=== PATIENT | male | born 1990 | race Caucasian/White ===

== ENCOUNTER 2024-03-29 18:03 | Emergency (ER) | payer BC ==
[2024-03-29] MEDS ORDERED: METHYLPREDNISOLONE 125 MG INJ ONE (18:36)
[2024-03-29] MEDS ORDERED: DIPHENHYDRAMINE 50 MG/ML VIAL ONE (18:36)
[2024-03-29] MEDS ORDERED: FAMOTIDINE 20 MG/2 ML VIAL IV ONE (18:36)
[2024-03-29] MEDS ORDERED: EPINEPHrine 1 MG/10 ML SYR ONE (18:37)
[2024-03-29] MEDS ORDERED: NA CHLORIDE 0.9% 1,000 ML ONE (18:37)
[2024-03-29] MEDS ORDERED: EPINEPHRINE 1 MG/ML VIAL ONE (18:41)
[2024-03-29 19:05] LABS: Absolute Lymphocytes (CBC) 0.7 K/uL (0.7-4.9); Absolute Monocytes 0.2 K/uL (0.1-1.3); Absolute Neutrophil 5.8 K/uL (1.8-8.0); Basophils % 0.1 % (0-1.3); Hematocrit 44.8 % (39.6-49.0); Hemoglobin 15.6 g/dL (13.6-17.9); MCH 28.3 pg (27.0-35.0); MCHC 34.8 g/dL (32.0-36.0); MCV 81.3 fL (80-100); MPV 7.1 fL (7.6-11.3); Monocytes % 3.3 % (3.3-12.3); Neutrophils % 85.6 % (41.7-73.7); Platelets 312 thou/uL (152-406); RBC Red Blood Cell Count 5.51 M/uL (4.33-5.43); Red Cell Distribution Width 13.2 % (12.1-15.2)
[2024-03-29 19:14] LABS: PTT, Activated Partial Thromb 28.7 SECONDS (24.3-36.9); Protime INR 1.14
--- NOTE | 2024-03-29 19:16 | RAD REPORT ---
Procedure: Chest Single View HISTORY: Shortness of breath COMPARISON: none FINDINGS: The lungs appear clear of acute infiltrate. No significant pleural effusion noted. The heart is normal size. IMPRESSION: No acute abnormality is displayed.
[2024-03-29 19:21] LABS: Albumin 3.5 g/dL (3.4-5.0); Albumin/Globulin Ratio 1.1 (1.1-1.8); Anion Gap 10.2 mEq/L (5.0-15.0); Bilirubin Total 0.4 mg/dL (0.2-1.0); Globulin 3.1 g/dL (2.3-3.5); Potassium 3.2 mEq/L (3.5-5.1); Protein, Total 6.6 g/dL (6.4-8.2)
--- NOTE | 2024-03-29 20:05 | ER ---
Nurse's Notes [facility] Name: Satish Murdock Age: 33 yrs Sex: Male : 1990 Arrival Date: 03/29/2024 Time: 18:03 Bed 17 Private MD: Diagnosis: Urticaria, unspecified;Idiopathic urticaria;Hypokalemia Presentation: 03/29 18:06 Chief complaint: Patient states: has had stomach pain for a few weeks, today started ko1 breaking out in rash, has had hives for years but this is different and worse. Coronavirus screen: At this time, the client does not indicate any symptoms associated with coronavirus-19. Ebola Screen: No symptoms or risks identified at this time. Onset: The symptoms/episode began/occurred gradually. Anaphylaxis evaluation, the patient reports or I have noted the following symptoms which indicate a significant risk of anaphylaxis:. Initial Sepsis Screen: Does the patient meet any 2 criteria? No. Patient's initial sepsis screen is negative. Does the patient have a suspected source of infection? No. Patient's initial sepsis screen is negative. Risk Assessment: Do you want to hurt yourself or someone else? Patient reports no desire to harm self or others. Onset of symptoms was March 29, 2024. 18:06 Method Of Arrival: Ambulatory ko1 18:06 Acuity: ROSIE 2 ko1 Triage Assessment: 18:11 General: Appears distressed, uncomfortable, Behavior is calm, cooperative, appropriate ko1 for age. Pain: Denies pain. Historical: - Allergies: 18:11 No Known Allergies; ko1 - PMHx: 18:11 hives; ko1 - Immunization history:: Adult Immunizations unknown. - Infectious Disease History:: Denies. - Social history:: Smoking status: Patient denies any tobacco usage or history of. - Family history:: not pertinent. Screenin:20 [facility] ED Fall Risk Assessment (Adult) History of falling in the last 3 months, kj2 including since admission No falls in past 3 months (0 pts) Confusion or Disorientation No (0 pts) Intoxicated or Sedated No (0 pts) Impaired Gait No (0 pts) Mobility Assist Device Used No (0 pt) Altered Elimination No (0 pt) Score/Fall Risk Level 0 - 2 = Low Risk Maintained a safe environment, Hourly rounding (assess needs \T\ fall precautionary measures) done. Abuse screen: Denies threats or abuse. Denies injuries from another. Nutritional screening: No deficits noted. Tuberculosis screening: No symptoms or risk factors identified. Assessment: 18:20 General: Appears in no apparent distress. Behavior is calm, cooperative. Pain: kj2 Complains of pain in abdomen Pain currently is 6 out of 10 on a pain scale. Neuro: Level of Consciousness is awake, alert, obeys commands. Cardiovascular: Patient's skin is warm and dry. Respiratory: Airway is patent Respiratory effort is even, unlabored. GI: No signs and/or symptoms were reported involving the gastrointestinal system. : No signs and/or symptoms were reported regarding the genitourinary system. 20:21 Reassessment: Patient appears in no apparent distress at this time. Patient and/or kj2 family updated on plan of care and expected duration. Pain level reassessed. Patient is alert, oriented x 3, equal unlabored respirations, skin warm/dry/pink. Respiratory: Breath sounds are clear bilaterally. 20:44 Reassessment: discharge on hold pending CT. kj2 22:18 Reassessment: Patient appears in no apparent distress at this time. Patient and/or kj2 family updated on plan of care and expected duration. Pain level reassessed. Patient is alert, oriented x 3, equal unlabored respirations, skin warm/dry/pink. Vital Signs: 18:06 BP 114 / 83; Pulse 125; Resp 18; Temp 99.1; Pulse Ox 99% ; ko1 18:20 BP 135 / 90; Pulse 95; Resp 20; Pulse Ox 100% on R/A; kj2 19:12 BP 131 / 74; Pulse 89; Resp 20; kj2 20:21 BP 127 / 66; Pulse 93; Resp 20; Temp 98.2; Pulse Ox 100% ; kj2 22:17 BP 126 / 66; Pulse 91; Resp 18; Temp 98.2; Pulse Ox 100% on R/A; kj2 ED Course: 18:04 Patient arrived in ED. im 18:07 Justice Barnes MD is Attending Physician. rt 18:11 Triage completed. ko1 18:11 Arm band placed on right wrist. ko1 18:18 Betty Lambert RN is Primary Nurse. kj2 18:20 Patient has correct armband on for positive identification. Bed in low position. Call kj2 light in reach. Provided Education on: call light. 18:25 Inserted saline lock: 20 gauge in right forearm, using aseptic technique. Blood ty collected. Flushed with 10 mL NS. 18:25 First set of blood cultures drawn by me. ty 18:45 Initial lab(s) drawn, by me, Second set of blood cultures drawn by me. Inserted saline ty lock: 20 gauge in left forearm, using aseptic technique. Blood collected. Flushed with 10 mL NS. 18:58 Blood Culture Adult (2) Sent. ty 18:58 CBC with Diff Sent. ty 18:58 CMP Sent. ty 18:58 Lactate w/ 2H reflex if indic. Sent. ty 18:58 Protime (+inr) Sent. ty 18:58 Ptt, Activated Sent. ty 19:03 Chest Single View XRAY In Process Unspecified. EDMS 19:20 Attending Physician role handed off by Justice Barnes MD lizzie 19:20 Spencer Mark MD is Attending Physician. lizzie 20:04 Toan Brady MD is Referral Physician. lizzie 20:22 No provider procedures requiring assistance completed. kj2 21:14 CT Abd/Pelvis - IV Contrast Only In Process Unspecified. EDMS 22:18 IV discontinued, intact, bleeding controlled, No redness/swelling at site. Pressure kj2 dressing applied. Administered Medications: 18:49 Drug: MethylPrednisoLONE IVP 125 mg IVP once Route: IVP; Site: right forearm; kj2 20:20 Follow up: Response: No adverse reaction kj2 18:50 Drug: NS 0.9% IV 1000 ml IV at 1 bolus Per protocol; to be given as a bolus over 60 kj2 minutes Route: IV; Rate: 1 bolus; Site: right forearm; 20:21 Follow up: IV Status: Completed infusion; IV Intake: 1000ml kj2 18:50 Drug: EPINEPHrine 1:1000 Sub-Q 1:1,000 0.3 ml Sub-Q once Route: Sub-Q; Site: right kj2 upper arm; 20:20 Follow up: Response: No adverse reaction kj2 18:50 Drug: diphenhydrAMINE IVP 50 mg IVP once Route: IVP; Site: left forearm; kj2 20:20 Follow up: Response: No adverse reaction kj2 18:50 Drug: Famotidine IVP 20 mg IVP once; dilute with 10 mL 0.9% NaCl; give over 2 minutes kj2 Route: IVP; Site: right forearm; 20:20 Follow up: Response: No adverse reaction kj2 20:19 Drug: predniSONE PO 60 mg PO once Route: PO; kj2 20:19 Follow up: Response: No adverse reaction kj2 20:19 Drug: Potassium PO Effervescent Tablet 25 mEq PO once; dissolve in 4 ounces of water or kj2 juice Route: PO; 20:19 Follow up: Response: No adverse reaction kj2 Medication: 20:22 VIS not applicable for this client. kj2 Intake: 20:21 IV: 1000ml; Total: 1000ml. kj2 Outcome: 20:04 Discharge ordered by . lizzie 20:22 Condition: stable kj2 20:22 Discharge instructions given to patient, Instructed on discharge instructions, follow up and referral plans. Demonstrated understanding of instructions, follow-up care, medications, 22:18 Discharged to home ambulatory, with family, kj2 22:19 Patient left the ED. kj2 Signatures: Dispatcher [employer] EDSpencer Matias MD MD cha Oliver, Kathy, RN RN ko1 Justice Barnes MD MD rt Mendoza, Itzel im Yandell, Tylor ty Jordan, Krystal, RN RN kj2 Corrections: (The following items were deleted from the chart) 18:16 18:06 Acuity: ROSIE 3 ko1 ko1
--- NOTE | 2024-03-29 20:05 | EDPHYS ---
Physician Documentation [facility] Name: Satish Murdock Age: 33 yrs Sex: Male : 1990 Arrival Date: 03/29/2024 Time: 18:03 Bed 17 Private MD: ED Physician Spencer Mark HPI: 03/29 19:18 This 33 yrs old Male presents to ER via Ambulatory with complaints of Allergic rt Reaction, Shortness Of Breath, Hives, Abdominal Pain. 19:18 Patient reports having hives for his entire life. States that his hives had worsened rt today, was having abdominal pain to take ibuprofen, Tylenol prior to arrival. States that he had difficulty breathing, feels a sensation that he is swelling in the back of his throat but denies tongue swelling. Denies other acute complaints at this time, symptoms are moderate severity, no other aggravating or alleviating factors.. Historical: - Allergies: 18:11 No Known Allergies; ko1 - PMHx: 18:11 hives; ko1 - Immunization history:: Adult Immunizations unknown. - Infectious Disease History:: Denies. - Social history:: Smoking status: Patient denies any tobacco usage or history of. - Family history:: not pertinent. ROS: 19:18 Constitutional: Negative for fever, chills, and weight loss, MS/Extremity: Negative for rt injury and deformity, Neuro: Negative for headache, weakness, numbness, tingling, and seizure, 19:18 Respiratory: Positive for cough, shortness of breath, 19:18 Skin: Positive for Hives, negative for cellulitis, Exam: 19:18 Constitutional: This is a well developed, well nourished patient who is awake, alert, rt and in no acute distress. Head/Face: Normocephalic, atraumatic. Chest/axilla: Normal chest wall appearance and motion. Nontender with no deformity. No lesions are appreciated. Cardiovascular: Regular rate and rhythm with a normal S1 and S2. No gallops, murmurs, or rubs. Normal PMI, no JVD. No pulse deficits. Abdomen/GI: Soft, non-tender, with normal bowel sounds. No distension or tympany. No guarding or rebound. No evidence of tenderness throughout. MS/ Extremity: Pulses equal, no cyanosis. Neurovascular intact. Full, normal range of motion. Neuro: Awake and alert, GCS 15, oriented to person, place, time, and situation. Cranial nerves II-XII grossly intact. Motor strength 5/5 in all extremities. Sensory grossly intact. Cerebellar exam normal. Normal gait. 19:18 ENT: No appreciable tongue, lip swelling. 19:18 Respiratory: No wheezing, stridor, 19:18 Skin: Diffuse urticarial rash noted. 20:02 ECG was reviewed by the Attending Physician. lizzie Vital Signs: 18:06 BP 114 / 83; Pulse 125; Resp 18; Temp 99.1; Pulse Ox 99% ; ko1 18:20 BP 135 / 90; Pulse 95; Resp 20; Pulse Ox 100% on R/A; kj2 19:12 BP 131 / 74; Pulse 89; Resp 20; kj2 20:21 BP 127 / 66; Pulse 93; Resp 20; Temp 98.2; Pulse Ox 100% ; kj2 22:17 BP 126 / 66; Pulse 91; Resp 18; Temp 98.2; Pulse Ox 100% on R/A; kj2 MDM: 18:08 Medical Screening Exam initiated rt 20:02 Differential diagnosis: anaphylaxis, angioedema, Arrhythmias bronchospasm, foreign body lizzie or airway obstruction Hereditary Angioedema Mastocystosis non IgE mediated drug reaction Status Asthmaticus urticaria. Data reviewed: vital signs, nurses notes, lab test result(s), EKG, radiologic studies, plain films. Consideration of Admission/Observation Escalation of care including admission/observation considered. I considered the following discharge prescriptions or medication management in the emergency department Medications were administered in the Emergency Department. See MAR. Independent interpretation of the following test(s) in the Emergency Department EKG: See my EKG interpretation above. Test considered but Not performed: Ultrasound no abd usg , gb , removed. Historians other than the Patient: pt very well informed. Care significantly affected by the following chronic conditions: hives. Counseling: I had a detailed discussion with the patient and/or guardian regarding the historical points, exam findings, and any diagnostic results supporting the discharge/admit diagnosis, lab results, radiology results, the need for outpatient follow up, for definitive care, an allergy/homeland security program specialist, a family practitioner. 03/29 18:17 Order name: Blood Culture Adult (2) rt 03/29 18:17 Order name: CBC with Diff rt 03/29 18:17 Order name: CMP; Complete Time: 19:34 rt 03/29 18:17 Order name: Lactate w/ 2H reflex if indic.; Complete Time: 19:34 rt 03/29 18:17 Order name: Protime (+inr); Complete Time: 19:17 rt 03/29 18:17 Order name: Ptt, Activated; Complete Time: 19:17 rt 03/29 18:17 Order name: Influenza Screen (a \T\ B); Complete Time: 20:02 rt 03/29 18:17 Order name: Chest Single View XRAY; Complete Time: 19:17 rt 03/29 20:28 Order name: CT Abd/Pelvis - IV Contrast Only; Complete Time: 21:29 kj2 03/29 18:17 Order name: Cardiac monitoring; Complete Time: 18:58 rt 03/29 18:17 Order name: EKG - Nurse/Tech; Complete Time: 18:58 rt 03/29 18:17 Order name: IV Saline Lock - Large Bore; Complete Time: 18:58 rt 03/29 18:17 Order name: Labs collected and sent; Complete Time: 18:58 rt 03/29 18:17 Order name: O2 Per Protocol; Complete Time: 18:58 rt 03/29 18:17 Order name: O2 Sat Monitoring; Complete Time: 18:58 rt 03/29 18:17 Order name: Vital Signs; Complete Time: 18:58 rt 03/29 19:37 Order name: PO challenge: juice; Complete Time: 20:19 lizzie EC:02 Rate is 92 beats/min. Rhythm is regular. QRS [place] is Normal. UT interval is normal. QRS lizzie interval is normal. QT interval is normal. No Q waves. T waves are Normal. No ST changes noted. Clinical impression: Normal ECG and No evidence of ischemia. Interpreted by me. Reviewed by me. Administered Medications: 18:49 Drug: MethylPrednisoLONE IVP 125 mg IVP once Route: IVP; Site: right forearm; kj2 20:20 Follow up: Response: No adverse reaction kj2 18:50 Drug: NS 0.9% IV 1000 ml IV at 1 bolus Per protocol; to be given as a bolus over 60 kj2 minutes Route: IV; Rate: 1 bolus; Site: right forearm; 20:21 Follow up: IV Status: Completed infusion; IV Intake: 1000ml kj2 18:50 Drug: EPINEPHrine 1:1000 Sub-Q 1:1,000 0.3 ml Sub-Q once Route: Sub-Q; Site: right kj2 upper arm; 20:20 Follow up: Response: No adverse reaction kj2 18:50 Drug: diphenhydrAMINE IVP 50 mg IVP once Route: IVP; Site: left forearm; kj2 20:20 Follow up: Response: No adverse reaction kj2 18:50 Drug: Famotidine IVP 20 mg IVP once; dilute with 10 mL 0.9% NaCl; give over 2 minutes kj2 Route: IVP; Site: right forearm; 20:20 Follow up: Response: No adverse reaction kj2 20:19 Drug: predniSONE PO 60 mg PO once Route: PO; kj2 20:19 Follow up: Response: No adverse reaction kj2 20:19 Drug: Potassium PO Effervescent Tablet 25 mEq PO once; dissolve in 4 ounces of water or kj2 juice Route: PO; 20:19 Follow up: Response: No adverse reaction kj2 Disposition Summary: 03/29/24 20:04 Discharge Ordered Notes: Location: Home lizzie Problem: new lizzie Symptoms: have improved lizzie Condition: Stable lizzie Diagnosis - Urticaria, unspecified lizzie - Idiopathic urticaria lizzie - Hypokalemia lizzie Followup: lizzie - With: Private Physician - When: 2 - 3 days - Reason: Recheck today's complaints, Continuance of care, Re-evaluation by your physician Followup: lizzie - With: Toan Brady MD - When: 2 - 3 days - Reason: Recheck today's complaints, Re-evaluation by your physician Discharge Instructions: - Discharge Summary Sheet lizzie - Potassium Content of Foods lizzie - Hives lizzie - Rash, Adult lizzie - Rash, Adult, [id number] lizzie - Angioedema, Hyyi-ei-Wwok lizzie - Hives, Edro-ez-Hadd lizzie - Allergies, Adult, Qbjs-[id number] lizzie - Hypokalemia lizzie Forms: - Medication Reconciliation Form lizzie - Antibiotic Education lizzie - Prescription Opioid Use lizzie - Patient Portal Instructions [facility] - Leadership Thank You Letter [facility] Prescriptions: - EpiPen 2-Oleg - inject 1 application SUBCUTANEOUS route as directed; 1 Pack; Refills: 0, lizzie Product Selection Permitted - Benadryl 25 mg Oral capsule - take 1 capsule ORAL route every 6 hours As needed; 36 tablet; Refills: 0, lizzie Product Selection Permitted - Pepcid 20 mg Oral tablet - take 1 tablet ORAL route every 12 hours for 21 days; 42 tablet; Refills: 0, [facility] Product Selection Permitted - Singulair 10 mg Oral Tablet - take 1 tablet ORAL route At bedtime; 20 tablet; Refills: 0, Product Selection [facility] Permitted - Prednisone 20 mg Oral Tablet - take 2 tablets ORAL route once daily for 5 days; 10 tablet; Refills: 0, Product lizzie Selection Permitted Signatures: Dispatcher [employer] EDMS Spencer Mark MD MD cha Oliver, Kathy, RN RN ko1 Justice Barnes MD MD rt Jordan, Krystal RN RN kj2 Corrections: (The following items were deleted from the chart) 20:00 19:45 Abdomen Limited+US.RAD.BRZ ordered. EDMS EDMS 20:28 20:28 Abdomen Pelvis W Con+CT.RAD.BRZ ordered. EDMS EDMS
[2024-03-29] MEDS ORDERED: predniSONE 20 MG TAB ONE (20:15)
[2024-03-29] MEDS ORDERED: POTASSIUM 25 MEQ EFFERV TAB ONE (20:15)
--- NOTE | 2024-03-29 21:24 | RAD REPORT ---
EXAMINATION: CT ABDOMEN AND PELVIS WITH CONTRAST CLINICAL INDICATION: Abdominal pain TECHNIQUE: CT abdomen and pelvis was performed, after the administration of 100 cc Isovue-300.. Sagit eddie and coronal reconstructions were obtained. One or more of the following dose reduction techniques were used: Automated exposure control, adjustment of the mA and kV according to patient si ze, and iterative reconstruction. Unless otherwise specified, incidental findings do not require dedicated imaging follow-up. [id number]. Oral contrast was not given which limits evaluation of bowel and appendix. COMPARISON: .None FINDINGS: Cholecystectomy. Liver, spleen, pancreas, adrenals and kidneys appear unremarkable No evidence of diverticulitis. Normal appendix. Trace amount of ascites Small umbilical hernia : IMPRESSION: Trace amount of ascites. Otherwise unremarkable exam
[2024-03-30 01:35] VITALS: O2SAT 100
[2024-03-30 01:37] VITALS: TEMP 98.2
[2024-03-30 01:39] VITALS: BP 126/66
[2024-03-30 03:50] LABS: Blood Morphology Comment NOT SEEN (NOT SEEN); Platelet Estimate ADEQ; White Blood Cell Scan OK (OK)
--- NOTE | 2024-04-02 12:42 | EKG ---
Test Date: 2024-03-29 Test Time: 19:18:58 Straightener Hand: OBEY MEASUREMENT RESULTS: Intervals: Rate: 92 TX: 156 QRSD: 98 QT: 366 QTc: 452 [place]: P: 53 TX: 156 QRS: 23 T: 41 INTERPRETIVE STATEMENTS: Normal sinus rhythm Normal ECG No previous ECG available for comparison Electronically Signed On 04-02-24 12:35:13 [employer] SALES ACCOUNT MANAGER by Gasper Carter
== END 2024-03-29 22:19 | disposition home or self-care (01) ==
LOC: ER 18:03
DX: L50.1 Idiopathic urticaria (principal); E87.6 Hypokalemia
CPT/HCPCS: 87040 ×2; 85025; 36415; 85610; 83605; 85730; 80053; 87804 ×2; 74177; 71045; 96372; 99284; Q9967; J7512; J1200; J0171; J2919; J7030; 93005